=== PATIENT | female | born 1990 | race Caucasian/White ===

== ENCOUNTER 2016-09-15 12:23 | Emergency (ER) | payer BC, OTHER ==
[~2016-09-15] VITALS: Ht 157.5 cm; Wt 68.0 kg
[2016-09-15 12:54] VITALS: BP_SYST 110
[2016-09-15 13:43] LABS: BASOPHILS % (AUTO) 0.4 % (0.0-2.0); EOSINOPHILS # (AUTO) 0.1 K/uL (0.0-0.4); EOSINOPHILS % (AUTO) 0.6 % (0.0-4.0); HEMATOCRIT 40.8 % (36-48); HEMOGLOBIN 13.8 g/dL (12.0-16.0); LYMPHOCYTES # (AUTO) 2.7 K/uL (1.0-5.5); LYMPHOCYTES % (AUTO) 26.6 % (20.5-51.5); MEAN CORPUSCULAR HEMOGLOBIN 29 pg (27-31); MEAN CORPUSCULAR HGB CONC 34 % (32-36); MEAN CORPUSCULAR VOLUME 85 fL (79.0-98.0); MONOCYTES # (AUTO) 0.8 K/uL (0.0-1.0); MONOCYTES % (AUTO) 8.3 % (1.7-9.3); NEUTROPHILS # (AUTO) 6.5 K/uL (1.8-7.7); NEUTROPHILS % (AUTO) 64.1 % (40.0-70.0); PLATELET COUNT (AUTO) 253 K/uL (130-430); RED BLOOD CELL COUNT(AUTO) 4.79 MIL/uL (4.2-6.2); WHITE BLOOD COUNT (AUTO) 10.1 K/uL (4.8-10.8)
[2016-09-15 13:50] LABS: CALCIUM 9.4 mg/dL (8.4-11.0); CREATININE 0.72 mg/dL (0.55-1.30)
[2016-09-15 13:53] LABS: PROTHROMBIN TIME 10.8 SECS (9.5-12.5)
[2016-09-15 14:20] LABS: ALBUMIN 3.5 g/dL (3.4-4.8); TOTAL BILIRUBIN 0.3 mg/dL (0.0-1.0); TOTAL PROTEIN, SERUM 7.8 g/dL (6.4-8.3)
--- NOTE | 2016-09-15 14:42 | NUR ---
Patient to ER bed 4 to gown for evaluation. Side rails up. Report given to Nilda RUSHING.
[2016-09-15 14:57] LABS: BILIRUBIN,URINE NEGATIVE (NEGATIVE); BLOOD, URINE 2+ (NEGATIVE); CLARITY/URINE HAZY (CLEAR); COLOR,URINE YELLOW (YELLOW); GLUCOSE,URINE NEGATIVE (NEGATIVE); KETONES,URINE NEGATIVE (NEGATIVE); LEUKOCYTE ESTERASE ,URINE 1+ (NEGATIVE); NITRITE, URINE NEGATIVE (NEGATIVE); PROTEIN URINE NEGATIVE (NEGATIVE); UROBILINOGEN,URINE 0.2 (0.2-1.0)
[2016-09-15 14:59] LABS: BACTERIA,URINE FEW /HPF (None Seen); MUCUS,URINE None Seen /LPF (None Seen)
--- NOTE | 2016-09-15 15:00 | NUR ---
Dr. Deras at bedside.
--- NOTE | 2016-09-15 15:17 | NUR ---
Patient reports that she has been having vaginal bleeding with cramping and pain in the back today. Patient reports that she is 9 weeks . No other complaints/injuries per patient or as noted.
--- NOTE | 2016-09-15 17:10 | NUR ---
Consent signed per patient agreeing to administration of Rhogam. Blood has been type and crossmatched. Blood sent from blood bank. Information on unit of blood checked against patient wristband at bedside by two nurses. All information matches. Patient or responsible constitution party informed of potential complications associated with blood transfusion. Informed of possible transfusion reaction symptoms. Aware of need to notify nurse at once of itching, shortness of breath, flushing, feeling of impending doom, or other symptoms not previously present. Vital signs taken within 5 minutes prior to initiation of transfusion. RN will remain with patient for first 15 minutes of transfusion at which time vital signs will be re-assessed.
--- NOTE | 2016-09-15 17:15 | NUR ---
Patient's Vitals signs are 98.8, Pulse 64, Respiration 17 and blood pressure 107/71 prior to adminstration of Rhogam. Will continue to monitor
--- NOTE | 2016-09-15 17:40 | NUR ---
Patient Vitals during post transfusion is 98.8, Pulse of 74 Respiration of 16 Blood Pressure of 104/62. Patient has no complaints at this time.
[2016-09-15 17:49] VITALS: BP_SYST 110
--- NOTE | 2016-09-15 17:49 | NUR ---
Patient given written and verbal discharge instructions and verbalizes understanding. ER MD discussed with patient the results and treatment provided. Patient in stable condition. ID arm band removed. No Rx given. Patient educated on pain management and to follow up with PMD in 2 days. Pain Scale 0/10 Opportunity for questions provided and answered.
== END 2016-09-15 19:47 | disposition home or self-care (01) ==
LOC: SED 12:23
DX: O20.0 Threatened abortion (principal); O23.41 Unspecified infection of urinary tract in pregnancy, first trimester; Z3A.01 Less than 8 weeks gestation of pregnancy
CPT/HCPCS: 36415; 76801; 80053; 81000; 84702; 85025; 85610; 85730; 86900; 86901; 87086; 99285; J2790

== ENCOUNTER 2016-09-28 09:17 | Emergency (ER) | payer OTHER ==
[~2016-09-28] VITALS: Ht 157.5 cm; Wt 68.0 kg
[2016-09-28 09:21] VITALS: BP_SYST 109
--- NOTE | 2016-09-28 09:25 | NUR ---
Ambulatory to bed 4
--- NOTE | 2016-09-28 09:28 | NUR ---
Pt bib mother for c/o nausea and vomiting for more than 5 days, states she is about 11 weeks . . LMP was 07/15/16. Pt is placed on hospital monitor and continuous pulse ox. VSS, will continue to monitor.
--- NOTE | 2016-09-28 09:31 | NUR ---
Dr. Ruiz at bedside for evaluation
[2016-09-28] MEDS ORDERED: NACL 0.9% 1,000 ML IV ONE (09:45)
[2016-09-28] MEDS ORDERED: ONDANSETRON HCL 4 MG/2 ML VIAL IVP ONE (09:45)
[2016-09-28 09:49] LABS: BASOPHILS % (AUTO) 0.3 % (0.0-2.0); EOSINOPHILS % (AUTO) 0.3 % (0.0-4.0); HEMATOCRIT 42.4 % (36-48); HEMOGLOBIN 14.2 g/dL (12.0-16.0); LYMPHOCYTES # (AUTO) 1.9 K/uL (1.0-5.5); LYMPHOCYTES % (AUTO) 24.2 % (20.5-51.5); MEAN CORPUSCULAR HEMOGLOBIN 29 pg (27-31); MEAN CORPUSCULAR HGB CONC 34 % (32-36); MEAN CORPUSCULAR VOLUME 85 fL (79.0-98.0); MONOCYTES # (AUTO) 0.6 K/uL (0.0-1.0); MONOCYTES % (AUTO) 7.3 % (1.7-9.3); NEUTROPHILS # (AUTO) 5.5 K/uL (1.8-7.7); NEUTROPHILS % (AUTO) 67.9 % (40.0-70.0); PLATELET COUNT (AUTO) 253 K/uL (130-430); RED BLOOD CELL COUNT(AUTO) 4.96 MIL/uL (4.2-6.2); RED CELL DISTRIBUTION WIDTH 11.8 % (9.0-15.0)
[2016-09-28 09:52] LABS: BILIRUBIN,URINE NEGATIVE (NEGATIVE); BLOOD, URINE 1+ (NEGATIVE); CLARITY/URINE CLOUDY (CLEAR); COLOR,URINE YELLOW (YELLOW); GLUCOSE,URINE NEGATIVE (NEGATIVE); KETONES,URINE NEGATIVE (NEGATIVE); LEUKOCYTE ESTERASE ,URINE TRACE (NEGATIVE); NITRITE, URINE NEGATIVE (NEGATIVE); PH,URINE 7.5 (5.0-8.0); PROTEIN URINE TRACE (NEGATIVE)
[2016-09-28 09:54] LABS: CALCIUM 9.6 mg/dL (8.4-11.0); CREATININE 0.81 mg/dL (0.55-1.30); POTASSIUM 3.9 mmol/L (3.5-5.1)
[2016-09-28 09:59] LABS: ALBUMIN 3.6 g/dL (3.4-4.8); TOTAL BILIRUBIN 0.4 mg/dL (0.0-1.0); TOTAL PROTEIN, SERUM 8.3 g/dL (6.4-8.3)
[2016-09-28 10:00] LABS: BACTERIA,URINE MANY /HPF (None Seen); RBC,URINE 0-3 /HPF (0-3)
--- NOTE | 2016-09-28 10:03 | NUR ---
Medicated per MD orders. IVF infusing with no s/s of infiltration at this time. No adverse reactions noted. Will continue to monitor.
--- NOTE | 2016-09-28 10:20 | NUR ---
Pt went to US on wheelchair with tech, no distress noted.
--- NOTE | 2016-09-28 10:40 | NUR ---
Pt back from US, states nausea is better. Dr. Ruiz at bedside to discuss plan of care.
[2016-09-28 10:55] VITALS: BP_SYST 106
--- NOTE | 2016-09-28 10:55 | NUR ---
Patient given written and verbal discharge instructions and verbalizes understanding. ER MD discussed with patient the results and treatment provided. Patient in stable condition. ID arm band removed. IV catheter removed intact and dressing applied, no active bleeding.Rx of zofran given. Opportunity for questions provided and answered.
== END 2016-09-28 10:55 | disposition home or self-care (01) ==
LOC: SED 09:17
DX: O21.0 Mild hyperemesis gravidarum (principal); Z3A.09 9 weeks gestation of pregnancy
CPT/HCPCS: 36415; 76801; 80053; 81000; 81025; 82150; 83690; 85025; 87086; 96361; 96374; 99285; J2405; J7030

== ENCOUNTER 2016-10-13 18:39 | Emergency (ER) | payer OTHER ==
[~2016-10-13] VITALS: Ht 157.5 cm; Wt 65.8 kg
[2016-10-13 18:40] VITALS: BP_SYST 135
[2016-10-13] MEDS ORDERED: NACL 0.9% 1,000 ML IV ONE (19:15)
[2016-10-13 20:07] LABS: BASOPHILS % (AUTO) 0.4 % (0.0-2.0); EOSINOPHILS % (AUTO) 0.6 % (0.0-4.0); HEMATOCRIT 39.7 % (36-48); HEMOGLOBIN 13.4 g/dL (12.0-16.0); LYMPHOCYTES # (AUTO) 2.5 K/uL (1.0-5.5); LYMPHOCYTES % (AUTO) 31.6 % (20.5-51.5); MEAN CORPUSCULAR HEMOGLOBIN 29 pg (27-31); MEAN CORPUSCULAR HGB CONC 34 % (32-36); MEAN CORPUSCULAR VOLUME 85 fL (79.0-98.0); MONOCYTES # (AUTO) 0.7 K/uL (0.0-1.0); MONOCYTES % (AUTO) 9.3 % (1.7-9.3); NEUTROPHILS # (AUTO) 4.6 K/uL (1.8-7.7); NEUTROPHILS % (AUTO) 58.1 % (40.0-70.0); PLATELET COUNT (AUTO) 266 K/uL (130-430); RED BLOOD CELL COUNT(AUTO) 4.65 MIL/uL (4.2-6.2); WHITE BLOOD COUNT (AUTO) 7.9 K/uL (4.8-10.8)
[2016-10-13 20:20] LABS: CALCIUM 8.6 mg/dL (8.4-11.0); CHLORIDE 105 mmol/L (98-107); CREATININE 0.59 mg/dL (0.55-1.30); GLUCOSE 86 mg/dL (70-99); POTASSIUM 3.5 mmol/L (3.5-5.1); SODIUM SERUM 130 mmol/L (136-145); UREA NITROGEN, BLOOD 9 mg/dL (8-21)
[2016-10-13 20:21] LABS: ANION GAP < 3 (5-15); GFR AFRICAN AMERICAN 160 mL/min (>90)
[2016-10-13 20:24] LABS: ALANINE AMINOTRANSFERASE 21 U/L (12-78); ALBUMIN 3.2 g/dL (3.4-4.8); ASPARTATE AMINOTRANSFERASE 16 U/L (10-37); LIPASE 158 U/L (73-393); TOTAL BILIRUBIN 0.3 mg/dL (0.0-1.0); TOTAL PROTEIN, SERUM 7.7 g/dL (6.4-8.3)
[2016-10-13] MEDS ORDERED: DIPHENHYDRAMINE INJ 50 MG/ML VIAL IVP ONE ×2 (20:30→22:00)
[2016-10-13 20:47] LABS: BILIRUBIN,URINE NEGATIVE (NEGATIVE); CLARITY/URINE SL HAZY (CLEAR); COLOR,URINE YELLOW (YELLOW); GLUCOSE,URINE NEGATIVE (NEGATIVE); KETONES,URINE NEGATIVE (NEGATIVE); LEUKOCYTE ESTERASE ,URINE NEGATIVE (NEGATIVE); NITRITE, URINE NEGATIVE (NEGATIVE); PH,URINE 6.5 (5.0-8.0); PROTEIN URINE NEGATIVE (NEGATIVE); UROBILINOGEN,URINE 0.2 (0.2-1.0)
[2016-10-13 20:48] LABS: BLOOD, URINE TRACE (NEGATIVE)
[2016-10-13 20:53] LABS: BACTERIA,URINE MODERATE /HPF (None Seen); RBC,URINE 0-3 /HPF (0-3)
[2016-10-13 20:54] LABS: MUCUS,URINE None Seen /LPF (None Seen)
[2016-10-13] MEDS ORDERED: METOCLOPRAMIDE HCL 10 MG/2 ML VIAL IVP ONE (21:15)
[2016-10-13] MEDS ORDERED: NS 500 ML IV ONE (22:00)
[2016-10-13 22:40] VITALS: BP_SYST 100
== END 2016-10-13 22:40 | disposition home or self-care (01) ==
LOC: SED 18:39
DX: O23.41 Unspecified infection of urinary tract in pregnancy, first trimester (principal); O21.9 Vomiting of pregnancy, unspecified; E87.1 Hypo-osmolality and hyponatremia; Z3A.12 12 weeks gestation of pregnancy
CPT/HCPCS: 36415; 76801; 76817; 80053; 81000; 83690; 85025; 87086; 96361; 96374; 96375; 99285; J1200; J2765; J7030; J7040

== ENCOUNTER 2016-10-25 23:17 | Emergency (ER) | payer OTHER ==
[~2016-10-25] VITALS: Ht 157.5 cm; Wt 68.0 kg
[2016-10-25 23:20] VITALS: BP_SYST 121
[2016-10-26 00:21] LABS: BILIRUBIN,URINE NEGATIVE (NEGATIVE); CLARITY/URINE CLEAR (CLEAR); COLOR,URINE YELLOW (YELLOW); GLUCOSE,URINE NEGATIVE (NEGATIVE); KETONES,URINE NEGATIVE (NEGATIVE); LEUKOCYTE ESTERASE ,URINE NEGATIVE (NEGATIVE); NITRITE, URINE NEGATIVE (NEGATIVE); PROTEIN URINE NEGATIVE (NEGATIVE); UROBILINOGEN,URINE 0.2 (0.2-1.0)
[2016-10-26 00:22] LABS: BLOOD, URINE TRACE (NEGATIVE)
[2016-10-26 00:32] LABS: BACTERIA,URINE FEW /HPF (None Seen); RBC,URINE 0-3 /HPF (0-3); WBC,URINE 0-3 /HPF (0-3)
[2016-10-26] MEDS ORDERED: ACETAMINOPHEN 500 MG TABLET PO ONE (00:45)
[2016-10-26 00:57] LABS: BASOPHILS % (AUTO) 0.2 % (0.0-2.0); EOSINOPHILS # (AUTO) 0.1 K/uL (0.0-0.4); EOSINOPHILS % (AUTO) 0.9 % (0.0-4.0); HEMATOCRIT 37.8 % (36-48); LYMPHOCYTES # (AUTO) 3.1 K/uL (1.0-5.5); LYMPHOCYTES % (AUTO) 35.8 % (20.5-51.5); MEAN CORPUSCULAR HEMOGLOBIN 29 pg (27-31); MEAN CORPUSCULAR HGB CONC 34 % (32-36); MEAN CORPUSCULAR VOLUME 84 fL (79.0-98.0); MONOCYTES # (AUTO) 0.7 K/uL (0.0-1.0); MONOCYTES % (AUTO) 8.5 % (1.7-9.3); NEUTROPHILS # (AUTO) 4.7 K/uL (1.8-7.7); NEUTROPHILS % (AUTO) 54.6 % (40.0-70.0); PLATELET COUNT (AUTO) 242 K/uL (130-430); RED BLOOD CELL COUNT(AUTO) 4.48 MIL/uL (4.2-6.2); RED CELL DISTRIBUTION WIDTH 11.9 % (9.0-15.0); WHITE BLOOD COUNT (AUTO) 8.6 K/uL (4.8-10.8)
[2016-10-26 01:04] LABS: CALCIUM 8.8 mg/dL (8.4-11.0); CREATININE 0.7 mg/dL (0.55-1.30); POTASSIUM 3.8 mmol/L (3.5-5.1)
[2016-10-26 01:30] LABS: ALBUMIN 3.1 g/dL (3.4-4.8); TOTAL BILIRUBIN 0.2 mg/dL (0.0-1.0); TOTAL PROTEIN, SERUM 7.3 g/dL (6.4-8.3)
[2016-10-26 01:38] VITALS: BP_SYST 119
== END 2016-10-26 01:38 | disposition home or self-care (01) ==
LOC: SED 23:17
DX: O26.892 Other specified pregnancy related conditions, second trimester (principal); Z63.9 Problem related to primary support group, unspecified; Z3A.14 14 weeks gestation of pregnancy
CPT/HCPCS: 36415; 76815; 80053; 81000-TC; 81025; 84702-TC; 85025; 99285

== ENCOUNTER 2016-11-26 18:16 | Observation (INO) | payer OTHER ==
[~2016-11-26] VITALS: Ht 157.5 cm; Wt 68.0 kg
[2016-11-26] MEDS ORDERED: D5/0.45 NS 1,000 ML IV ONE (18:45)
[2016-11-26] MEDS ORDERED: D5/0.45 NS 500 ML IV ONE ×2 (18:45→20:00)
[2016-11-26] MEDS ORDERED: ONDANSETRON HCL 4 MG/2 ML VIAL IVP PRN (18:45)
[2016-11-26 19:58] VITALS: BP_SYST 106
[2016-11-27] MEDS ORDERED: D5/0.45 NS 1,000 ML IV SCH (08:30)
== END 2016-11-27 08:30 | disposition home or self-care (01) ==
LOC: SPU 18:16
PROVIDERS: ADMIT Specialist; ATTEND Specialist
DX: O21.2 Late vomiting of pregnancy (principal); Z3A.00 Weeks of gestation of pregnancy not specified
CPT/HCPCS: 81002; 96361 ×2; 96374; G0378 ×2; J2405

== ENCOUNTER 2016-12-30 18:40 | Observation (INO) | payer OTHER ==
[~2016-12-30] VITALS: Ht 157.5 cm; Wt 68.9 kg
[2016-12-30 20:17] LABS: BILIRUBIN,URINE NEGATIVE (NEGATIVE); BLOOD, URINE 2+ (NEGATIVE); CLARITY/URINE CLEAR (CLEAR); COLOR,URINE YELLOW (YELLOW); GLUCOSE,URINE NEGATIVE (NEGATIVE); KETONES,URINE NEGATIVE (NEGATIVE); LEUKOCYTE ESTERASE ,URINE NEGATIVE (NEGATIVE); NITRITE, URINE NEGATIVE (NEGATIVE); PH,URINE 6.5 (5.0-8.0); PROTEIN URINE NEGATIVE (NEGATIVE); UROBILINOGEN,URINE 0.2 (0.2-1.0)
[2016-12-30 20:27] LABS: BACTERIA,URINE MODERATE /HPF (None Seen); RBC,URINE 0-3 /HPF (0-3); WBC,URINE 0-3 /HPF (0-3)
[2016-12-30 20:28] LABS: MUCUS,URINE None Seen /LPF (None Seen)
== END 2016-12-30 22:15 | disposition home or self-care (01) ==
LOC: SPU 18:40
PROVIDERS: ADMIT Specialist; ATTEND Specialist
DX: O26.892 Other specified pregnancy related conditions, second trimester (principal); R10.9 Unspecified abdominal pain; M54.9 Dorsalgia, unspecified; O46.92 Antepartum hemorrhage, unspecified, second trimester; Z3A.24 24 weeks gestation of pregnancy
CPT/HCPCS: 76815; 81000; G0378

== ENCOUNTER 2017-03-17 20:30 | Observation (INO) | payer OTHER ==
[~2017-03-17] VITALS: Ht 157.5 cm; Wt 79.4 kg
[2017-03-17 21:29] VITALS: BP_SYST 113
== END 2017-03-17 22:55 | disposition home or self-care (01) ==
LOC: SPU 20:30
PROVIDERS: ADMIT Specialist; ATTEND Specialist
DX: O26.893 Other specified pregnancy related conditions, third trimester (principal); Z3A.35 35 weeks gestation of pregnancy; R10.9 Unspecified abdominal pain; M54.5 Low back pain; Z36.89 Encounter for other specified antenatal screening
CPT/HCPCS: 81002-TC; G0378

== ENCOUNTER 2017-04-03 22:15 | Observation (INO) | payer OTHER ==
[~2017-04-03] VITALS: Ht 157.5 cm; Wt 79.4 kg
[2017-04-03] MEDS ORDERED: TERBUTALINE SULFATE 1 MG/ML VIAL ONE (22:59)
[2017-04-03] MEDS ORDERED: TERBUTALINE SULFATE 1 MG/ML VIAL SUBCUT PRN (23:00)
== END 2017-04-03 23:15 | disposition home or self-care (01) ==
LOC: SPU 22:15
PROVIDERS: ADMIT Specialist; ATTEND Specialist
DX: O62.9 Abnormality of forces of labor, unspecified (principal); Z3A.37 37 weeks gestation of pregnancy
CPT/HCPCS: 59025; 81002; 96372; G0378; J3105; 59899

== ENCOUNTER 2017-04-10 18:35 | Inpatient (IN) | payer OTHER ==
[~2017-04-10] VITALS: Ht 157.5 cm; Wt 80.7 kg
[2017-04-10] MEDS ORDERED: OXYTOCIN/NORMAL SALINE 1,000 ML IV SCH (20:19)
[2017-04-10] MEDS ORDERED: DINOPROSTONE 10 MG SUPP VG ONE (20:30)
[2017-04-10] MEDS ORDERED: NALBUPHINE HCL 10 MG/ML AMP IVP PRN (20:30)
[2017-04-10] MEDS ORDERED: LR 1,000 ML IV ONE (20:37)
[2017-04-10 21:05] LABS: BASOPHILS % (AUTO) 0.3 % (0.0-2.0); EOSINOPHILS # (AUTO) 0.1 K/uL (0.0-0.4); HEMOGLOBIN 10.8 g/dL (12.0-16.0); LYMPHOCYTES # (AUTO) 2.1 K/uL (1.0-5.5); LYMPHOCYTES % (AUTO) 27.6 % (20.5-51.5); MEAN CORPUSCULAR HEMOGLOBIN 28 pg (27-31); MEAN CORPUSCULAR HGB CONC 34 % (32-36); MEAN CORPUSCULAR VOLUME 82 fL (79.0-98.0); MONOCYTES # (AUTO) 0.7 K/uL (0.0-1.0); MONOCYTES % (AUTO) 8.7 % (1.7-9.3); NEUTROPHILS # (AUTO) 4.8 K/uL (1.8-7.7); NEUTROPHILS % (AUTO) 62.4 % (40.0-70.0); PLATELET COUNT (AUTO) 289 K/uL (130-430); RED BLOOD CELL COUNT(AUTO) 3.91 MIL/uL (4.2-6.2); RED CELL DISTRIBUTION WIDTH 12.2 % (9.0-15.0); WHITE BLOOD COUNT (AUTO) 7.7 K/uL (4.8-10.8)
[2017-04-10] MEDS: LR 1,000 ML IV SCH (21:11)
[2017-04-11] MEDS: LR 1,000 ML IV SCH (04:02)
[2017-04-11 04:44] VITALS: BP_SYST 120
[2017-04-11] MEDS ORDERED: fentaNYL CITRATE/PF 100 MCG/2 ML AMP ONE ×2 (10:21→10:29)
[2017-04-11] MEDS ORDERED: ROPIVACAINE 0.2% 100 ML EPI ONE (11:00)
[2017-04-11] MEDS ORDERED: fentaNYL CITRATE/PF 100 MCG/2 ML AMP EP ONE (11:00)
[2017-04-11] MEDS ORDERED: LR 500 ML IV ONE (11:10)
[2017-04-11] MEDS ORDERED: NALOXONE HCL 0.4 MG/ML AMP (NARCAN) IVP PRN (11:15)
[2017-04-11] MEDS ORDERED: NALBUPHINE HCL 10 MG/ML AMP IVP PRN (11:15)
[2017-04-11] MEDS ORDERED: ONDANSETRON HCL 4 MG/2 ML VIAL IVP PRN (11:15)
[2017-04-11] MEDS ORDERED: DIPHENHYDRAMINE INJ 50 MG/ML VIAL IVP PRN (11:15)
[2017-04-11] MEDS: OXYTOCIN/NORMAL SALINE 1,000 ML IV SCH (17:57)
[2017-04-12] MEDS ORDERED: NACL 0.9% 1,000 ML IV SCH (09:49)
[2017-04-12] MEDS ORDERED: CEFAZOLIN 2 GM IVPB PREMIX 50 ML IV ONE ×2 (10:00→10:04)
[2017-04-12] MEDS ORDERED: KETOROLAC TROMETHAMINE 30 MG VIAL IVP PRN (10:00)
[2017-04-12] MEDS ORDERED: ONDANSETRON HCL 4 MG/2 ML VIAL IVP PRN ×2 (10:00)
[2017-04-12] MEDS ORDERED: NALBUPHINE HCL 10 MG/ML AMP IVP PRN (10:00)
[2017-04-12] MEDS ORDERED: KETOROLAC TROMETHAMINE 60 MG/2 ML VIAL IM PRN (10:00)
[2017-04-12] MEDS ORDERED: DIPHENHYDRAMINE INJ 50 MG/ML VIAL IVP PRN (10:00)
[2017-04-12] MEDS ORDERED: NALOXONE HCL 0.4 MG/ML AMP (NARCAN) IVP PRN ×2 (10:00)
[2017-04-12] MEDS ORDERED: OXYTOCIN/NORMAL SALINE 1,000 ML IV ONE (10:58)
[2017-04-12] MEDS ORDERED: LR 1,000 ML IV SCH (10:58)
[2017-04-12 11:00] VITALS: BP_SYST 108
[2017-04-12] MEDS ORDERED: DOCUSATE SODIUM 100 MG CAPSULE PO PRN (11:00)
[2017-04-12] MEDS ORDERED: BISACODYL 10 MG/SUPPOSITORY RC PRN (11:00)
[2017-04-12] MEDS ORDERED: LANOLIN 7 GM OINT. TP PRN (11:00)
[2017-04-12] MEDS ORDERED: MEASLES,MUMPS&RUBELLA VACC/PF 12500 UNIT/0.5 ML VIAL SUBQ PRN (11:00)
[2017-04-12] MEDS ORDERED: SENNOSIDES/DOCUSATE SODIUM 1 TAB TABLET(SENOKOT-S) PO PRN (11:00)
[2017-04-12] MEDS ORDERED: OXYCODONE/ACETAMINOPHEN 5-325 TABLET PO PRN (11:00)
[2017-04-12] MEDS ORDERED: MORPHINE SULFATE 10MG/10ML PF AMP EP SCH (11:00)
[2017-04-12] MEDS ORDERED: ANUSOL 1 EA SUPP.RECT (PREPARATION H) RC PRN (11:00)
[2017-04-12] MEDS ORDERED: HYDROcodone/ACETAMIN 5-325 MG TAB (NORCO/ VICODIN) PO PRN (11:00)
[2017-04-12] MEDS ORDERED: RHO(D) IMMUNE GLOBULIN/MALTOSE 1500 UNITS/1.3 ML (WINHRO) IM PRN (11:00)
[2017-04-12] MEDS: OXYTOCIN/NORMAL SALINE 1,000 ML IV SCH (11:40)
[2017-04-12] MEDS: CEFAZOLIN 1 GM IVPB PREMIX 50 ML IV SCH ×2 (16:00→22:00)
[2017-04-12] MEDS: KETOROLAC TROMETHAMINE 30 MG VIAL IVP SCH (18:21)
[2017-04-12] MEDS ORDERED: BUPIVACAINE /PF 0.5% 30 ML VIAL INJ ONE (18:24)
[2017-04-12] MEDS ORDERED: TEMAZEPAM 15 MG CAPSULE PO PRN (21:00)
[2017-04-13] MEDS: KETOROLAC TROMETHAMINE 30 MG VIAL IVP SCH ×3 (01:35→11:31)
[2017-04-13] MEDS: CEFAZOLIN 1 GM IVPB PREMIX 50 ML IV SCH (04:00)
[2017-04-13 09:31] LABS: BASOPHILS % (AUTO) 0.3 % (0.0-2.0); EOSINOPHILS % (AUTO) 0.2 % (0.0-4.0); HEMATOCRIT 32.1 % (36-48); HEMOGLOBIN 10.6 g/dL (12.0-16.0); LYMPHOCYTES # (AUTO) 1.7 K/uL (1.0-5.5); LYMPHOCYTES % (AUTO) 14.5 % (20.5-51.5); MEAN CORPUSCULAR HEMOGLOBIN 27 pg (27-31); MEAN CORPUSCULAR HGB CONC 33 % (32-36); MEAN CORPUSCULAR VOLUME 83 fL (79.0-98.0); MONOCYTES # (AUTO) 0.7 K/uL (0.0-1.0); MONOCYTES % (AUTO) 6.4 % (1.7-9.3); NEUTROPHILS # (AUTO) 9.2 K/uL (1.8-7.7); NEUTROPHILS % (AUTO) 78.6 % (40.0-70.0); PLATELET COUNT (AUTO) 302 K/uL (130-430); RED BLOOD CELL COUNT(AUTO) 3.89 MIL/uL (4.2-6.2); RED CELL DISTRIBUTION WIDTH 12.4 % (9.0-15.0); WHITE BLOOD COUNT (AUTO) 11.6 K/uL (4.8-10.8)
[2017-04-13] MEDS: IBUPROFEN 600 MG TABLET PO SCH ×3 (11:36→23:27)
[2017-04-13] MEDS: SIMETHICONE 80 MG TAB.CHEW PO PRN (13:26)
[2017-04-14] MEDS: SIMETHICONE 80 MG TAB.CHEW PO PRN (02:50)
[2017-04-14] MEDS: OXYCODONE/ACETAMINOPHEN 5-325 TABLET PO PRN ×2 (05:41→17:26)
[2017-04-14] MEDS: IBUPROFEN 600 MG TABLET PO SCH ×3 (05:42→17:25)
== END 2017-04-14 18:25 | disposition home or self-care (01) | DRG 766 ==
LOC: SPU 20:00
PROVIDERS: ADMIT Specialist; ATTEND Specialist
PROC: 3E0P7VZ Introduction of Hormone into Female Reproductive, Via Natural or Artificial Opening (ICD-10-PCS; 2017-04-10)
PROC: 10D00Z1 Extraction of Products of Conception, Low, Open Approach (ICD-10-PCS; principal; 2017-04-11)
DX: O33.9 Maternal care for disproportion, unspecified (principal); O62.2 Other uterine inertia; O69.81X0 Labor and delivery complicated by cord around neck, without compression, not applicable or unspecified; Z37.0 Single live birth; Z3A.39 39 weeks gestation of pregnancy
CPT/HCPCS: 36415; 81002-TC; 85025; 86592; 86870; 86886; 86900; 86901; 94760; A4618; J0690; J1885; J2790; J3010; J3490; J7120

== ENCOUNTER 2018-04-18 22:47 | Observation (INO) | payer OTHER ==
[~2018-04-18] VITALS: Ht 157.5 cm; Wt 77.1 kg
[2018-04-18] MEDS ORDERED: NITROFURANTOIN MONOHYD/M-CRYST 100 MG CAPSULE PO ONE (23:54)
[2018-04-19] MEDS ORDERED: NITROFURANTOIN MONOHYD/M-CRYST 100 MG CAPSULE PO ONE
== END 2018-04-19 00:10 | disposition home or self-care (01) ==
LOC: SPU 22:47
PROVIDERS: ADMIT Specialist; ATTEND Specialist
DX: O26.892 Other specified pregnancy related conditions, second trimester (principal); R10.9 Unspecified abdominal pain; Z3A.26 26 weeks gestation of pregnancy
CPT/HCPCS: 87086; G0378

== ENCOUNTER 2018-06-08 22:30 | Emergency (ER) | payer OTHER ==
[~2018-06-08] VITALS: Ht 157.5 cm; Wt 79.4 kg
[2018-06-08 21:45] LABS: HEMATOCRIT 33.8 % (36-48); HEMOGLOBIN 11.5 g/dL (12.0-16.0); MEAN CORPUSCULAR VOLUME 84 fL (79.0-98.0); RED BLOOD CELL COUNT(AUTO) 4.01 MIL/uL (4.2-6.2); WHITE BLOOD COUNT (AUTO) 10.3 K/uL (4.8-10.8)
[2018-06-08 21:46] LABS: BASOPHILS % (AUTO) 0.3 % (0.0-2.0); EOSINOPHILS % (AUTO) 1.2 % (0.0-4.0); LYMPHOCYTES % (AUTO) 29.7 % (20.5-51.5); MEAN CORPUSCULAR HEMOGLOBIN 29 pg (27-31); MEAN CORPUSCULAR HGB CONC 34 % (32-36); MONOCYTES % (AUTO) 7.1 % (1.7-9.3); NEUTROPHILS # (AUTO) 6.4 K/uL (1.8-7.7); NEUTROPHILS % (AUTO) 61.7 % (40.0-70.0); PLATELET COUNT (AUTO) 290 K/uL (130-430)
[2018-06-08 21:47] LABS: EOSINOPHILS # (AUTO) 0.1 K/uL (0.0-0.4); LYMPHOCYTES # (AUTO) 3.1 K/uL (1.0-5.5); MONOCYTES # (AUTO) 0.7 K/uL (0.0-1.0)
[2018-06-08 21:52] LABS: ALBUMIN 2.3 g/dL (3.4-4.8); CALCIUM 8.5 mg/dL (8.4-11.0); CREATININE 0.53 mg/dL (0.55-1.30); POTASSIUM 3.5 mmol/L (3.5-5.1); TOTAL BILIRUBIN 0.2 mg/dL (0.0-1.0)
[2018-06-08 22:30] VITALS: BP_SYST 119
--- NOTE | 2018-06-08 22:30 | NUR ---
Pt triaged and placed to ER waiting room in W/C in stable condition. Family member present.
--- NOTE | 2018-06-08 22:58 | NUR ---
Pt returns to ER from OB. Pt c/o upper right rib pain, productive cough with green mucous x since Friday. Pt states that the overall feeling of sickness has been on going x 3 weeks. Pt denies c/o C/P or SOB, VSS.
--- NOTE | 2018-06-08 22:58 | NUR ---
[facility].
--- NOTE | 2018-06-08 23:10 | NUR ---
Pt states I haven't been seen yet and I've been waiting for hours. Reassured pt that MD will see her soon.
== END 2018-06-08 23:27 | disposition left against medical advice (07) ==
LOC: SED 22:30 → EDSTATUS 22:30 → SED 23:27
DX: R07.81 Pleurodynia (principal); R05 Cough; Z53.21 Procedure and treatment not carried out due to patient leaving prior to being seen by health care provider
CPT/HCPCS: 36415; 80053; 81002-TC; 85025; 99281

== ENCOUNTER 2018-07-14 04:50 | Inpatient (IN) | payer OTHER ==
[~2018-07-14] VITALS: Ht 157.5 cm; Wt 81.6 kg
[2018-07-14] MEDS ORDERED: LR 1,000 ML IV SCH (05:44)
[2018-07-14] MEDS ORDERED: CEFAZOLIN 2 GM IVPB PREMIX 50 ML IV ONE (05:45)
[2018-07-14 06:25] LABS: BILIRUBIN,URINE NEGATIVE (NEGATIVE); CLARITY/URINE SL HAZY (CLEAR); COLOR,URINE YELLOW (YELLOW); GLUCOSE,URINE NEGATIVE (NEGATIVE); KETONES,URINE 1+ (NEGATIVE); LEUKOCYTE ESTERASE ,URINE 3+ (NEGATIVE); NITRITE, URINE NEGATIVE (NEGATIVE); PH,URINE 7.5 (5.0-8.0); PROTEIN URINE TRACE (NEGATIVE); UROBILINOGEN,URINE 0.2 (0.2-1.0)
[2018-07-14 06:26] LABS: BLOOD, URINE TRACE (NEGATIVE)
[2018-07-14 06:28] LABS: HEMATOCRIT 36.4 % (36-48); HEMOGLOBIN 11.9 g/dL (12.0-16.0); MEAN CORPUSCULAR HEMOGLOBIN 26 pg (27-31); MEAN CORPUSCULAR VOLUME 80 fL (79.0-98.0); RED BLOOD CELL COUNT(AUTO) 4.56 MIL/uL (4.2-6.2); WHITE BLOOD COUNT (AUTO) 9.4 K/uL (4.8-10.8)
[2018-07-14 06:29] LABS: BASOPHILS % (AUTO) 0.3 % (0.0-2.0); EOSINOPHILS % (AUTO) 0.2 % (0.0-4.0); LYMPHOCYTES # (AUTO) 0.7 K/uL (1.0-5.5); LYMPHOCYTES % (AUTO) 7.2 % (20.5-51.5); MEAN CORPUSCULAR HGB CONC 33 % (32-36); MONOCYTES # (AUTO) 0.5 K/uL (0.0-1.0); MONOCYTES % (AUTO) 5.4 % (1.7-9.3); NEUTROPHILS # (AUTO) 8.1 K/uL (1.8-7.7); NEUTROPHILS % (AUTO) 86.9 % (40.0-70.0); PLATELET COUNT (AUTO) 246 K/uL (130-430); RED CELL DISTRIBUTION WIDTH 13.9 % (9.0-15.0)
[2018-07-14 06:34] LABS: BACTERIA,URINE MODERATE /HPF (None Seen); WBC,URINE 20-50 /HPF (0-3)
[2018-07-14] MEDS ORDERED: ONDANSETRON HCL 4 MG/2 ML VIAL IVP PRN (08:30)
== END 2018-07-14 14:45 | disposition home or self-care (01) | DRG 833 ==
LOC: SPU 04:50 → OBSVTOIN 04:50
PROVIDERS: ADMIT Specialist; ATTEND Specialist
DX: O21.9 Vomiting of pregnancy, unspecified (principal); Z3A.36 36 weeks gestation of pregnancy
CPT/HCPCS: 36415; 81000-TC; 85025; 86592; 86870; 86886; 86900; 86901; J0690; J2405; J7120

== ENCOUNTER 2018-08-07 05:35 | Inpatient (IN) | payer OTHER ==
[~2018-08-07] VITALS: Ht 157.5 cm; Wt 83.9 kg
[2018-08-07] MEDS ORDERED: CEFAZOLIN 2 GM IVPB PREMIX 50 ML IV ONE (05:45)
[2018-08-07] MEDS: LR 1,000 ML IV SCH ×2 (05:50→07:19)
[2018-08-07 06:03] LABS: BILIRUBIN,URINE NEGATIVE (NEGATIVE); BLOOD, URINE 1+ (NEGATIVE); CLARITY/URINE HAZY (CLEAR); COLOR,URINE YELLOW (YELLOW); GLUCOSE,URINE NEGATIVE (NEGATIVE); KETONES,URINE NEGATIVE (NEGATIVE); LEUKOCYTE ESTERASE ,URINE 3+ (NEGATIVE); NITRITE, URINE NEGATIVE (NEGATIVE); PROTEIN URINE NEGATIVE (NEGATIVE); UROBILINOGEN,URINE 0.2 (0.2-1.0)
[2018-08-07 06:06] LABS: BASOPHILS # (AUTO) 0.1 K/uL (0.0-0.2); BASOPHILS % (AUTO) 0.9 % (0.0-2.0); EOSINOPHILS # (AUTO) 0.1 K/uL (0.0-0.4); EOSINOPHILS % (AUTO) 0.8 % (0.0-4.0); HEMATOCRIT 36.2 % (36-48); HEMOGLOBIN 11.6 g/dL (12.0-16.0); LYMPHOCYTES # (AUTO) 2.1 K/uL (1.0-5.5); LYMPHOCYTES % (AUTO) 29.9 % (20.5-51.5); MEAN CORPUSCULAR HEMOGLOBIN 25 pg (27-31); MEAN CORPUSCULAR HGB CONC 32 % (32-36); MEAN CORPUSCULAR VOLUME 78 fL (79.0-98.0); MONOCYTES # (AUTO) 0.5 K/uL (0.0-1.0); MONOCYTES % (AUTO) 6.7 % (1.7-9.3); NEUTROPHILS # (AUTO) 4.4 K/uL (1.8-7.7); NEUTROPHILS % (AUTO) 61.7 % (40.0-70.0); PLATELET COUNT (AUTO) 241 K/uL (130-430); RED BLOOD CELL COUNT(AUTO) 4.63 MIL/uL (4.2-6.2); RED CELL DISTRIBUTION WIDTH 14.8 % (9.0-15.0); WHITE BLOOD COUNT (AUTO) 7.1 K/uL (4.8-10.8)
[2018-08-07 06:07] LABS: BACTERIA,URINE MODERATE /HPF (None Seen); WBC,URINE 50-80 /HPF (0-3)
[2018-08-07 06:28] VITALS: BP_SYST 106
[2018-08-07] MEDS ORDERED: BUPIVACAINE /DEX PF 0.75% SPINAL 2 ML AMP INJ ONE (07:30)
[2018-08-07] MEDS ORDERED: NS IRRIG SOLN 1000 ML IR ONE (07:30)
[2018-08-07] MEDS ORDERED: ONDANSETRON HCL 4 MG/2 ML VIAL IVP ONE (07:30)
[2018-08-07] MEDS ORDERED: MORPHINE SULFATE 10MG/10ML PF AMP EP ONE (07:30)
[2018-08-07] MEDS ORDERED: METHYLERGONOVINE MALEATE 0.2 MG/ML AMP IM ONE (07:30)
[2018-08-07] MEDS ORDERED: LR 1,000 ML IV.SOLN IV ONE (07:30)
[2018-08-07] MEDS ORDERED: POLYMYXIN 500,000/BACIT.10,000 UNITS in NS IRR 1 L IR ONE (08:29)
[2018-08-07] MEDS ORDERED: NALOXONE HCL 0.4 MG/ML AMP (NARCAN) IVP PRN ×3 (08:30→22:30)
[2018-08-07] MEDS ORDERED: KETOROLAC TROMETHAMINE 60 MG/2 ML VIAL IM PRN (08:30)
[2018-08-07] MEDS ORDERED: ONDANSETRON HCL 4 MG/2 ML VIAL IVP PRN (08:30)
[2018-08-07] MEDS ORDERED: MORPHINE SULFATE 10MG/10ML PF AMP SP SCH (08:30)
[2018-08-07] MEDS ORDERED: fentaNYL CITRATE/PF 100 MCG/2 ML AMP IVP PRN ×2 (08:30)
[2018-08-07] MEDS ORDERED: NALBUPHINE HCL 10 MG/ML AMP IVP PRN (08:30)
[2018-08-07] MEDS ORDERED: HYDROcodone/ACETAMIN 5-325 MG TAB (NORCO/ VICODIN) PO PRN (08:45)
[2018-08-07] MEDS ORDERED: DIPH-TET-PERTUS Vaccine 0.5 ML VIAL (ADACEL) I.M. PRN (08:45)
[2018-08-07] MEDS ORDERED: OXYTOCIN/0.9 % SODIUM CHLORIDE 1,000 ML IV ONE ×2 (08:45→19:03)
[2018-08-07] MEDS ORDERED: OXYCODONE/ACETAMINOPHEN 5-325 TABLET PO PRN (08:45)
[2018-08-07] MEDS ORDERED: LR 1,000 ML IV SCH (08:45)
[2018-08-07] MEDS ORDERED: BISACODYL 10 MG/SUPPOSITORY RC PRN (08:45)
[2018-08-07] MEDS ORDERED: SENNOSIDES/DOCUSATE SODIUM 1 TAB TABLET(SENOKOT-S) PO PRN (08:45)
[2018-08-07] MEDS ORDERED: ANUSOL 1 EA SUPP.RECT (PREPARATION H) RC PRN (08:45)
[2018-08-07] MEDS ORDERED: LANOLIN 7 GM OINT. TP PRN (08:45)
[2018-08-07] MEDS ORDERED: RHO(D) IMMUNE GLOBULIN/MALTOSE 1500 UNITS/1.3 ML (WINHRO) IM PRN (08:45)
[2018-08-07] MEDS ORDERED: MEASLES,MUMPS&RUBELLA VACC/PF 12500 UNIT/0.5 ML VIAL SUBQ PRN (08:45)
[2018-08-07 08:47] VITALS: BP_SYST 139
[2018-08-07] MEDS: CEFAZOLIN 1 GM IVPB PREMIX 50 ML IV SCH ×3 (12:20→23:55)
[2018-08-07] MEDS: KETOROLAC TROMETHAMINE 30 MG VIAL IVP SCH ×2 (18:05→23:55)
[2018-08-07] MEDS: DIPHENHYDRAMINE INJ 50 MG/ML VIAL IVP PRN ×2 (19:46→21:42)
[2018-08-07] MEDS ORDERED: TEMAZEPAM 15 MG CAPSULE PO PRN (21:00)
[2018-08-07] MEDS ORDERED: COMMUNICATION ORDER XX ONE (21:45)
[2018-08-07] MEDS ORDERED: DIPHENHYDRAMINE INJ 50 MG/ML VIAL IVP SCH (22:30)
[2018-08-08] MEDS: DIPHENHYDRAMINE INJ 50 MG/ML VIAL IVP PRN (02:40)
[2018-08-08] MEDS ORDERED: COMMUNICATION ORDER XX ONE (04:30)
[2018-08-08] MEDS ORDERED: OXYTOCIN/0.9 % SODIUM CHLORIDE 1,000 ML IV ONE (04:35)
[2018-08-08 05:22] LABS: BASOPHILS % (AUTO) 0.3 % (0.0-2.0); EOSINOPHILS # (AUTO) 0.1 K/uL (0.0-0.4); HEMATOCRIT 26.9 % (36-48); HEMOGLOBIN 8.7 g/dL (12.0-16.0); LYMPHOCYTES % (AUTO) 22.5 % (20.5-51.5); MEAN CORPUSCULAR HEMOGLOBIN 26 pg (27-31); MEAN CORPUSCULAR HGB CONC 32 % (32-36); MEAN CORPUSCULAR VOLUME 79 fL (79.0-98.0); MONOCYTES # (AUTO) 0.7 K/uL (0.0-1.0); MONOCYTES % (AUTO) 8.3 % (1.7-9.3); NEUTROPHILS # (AUTO) 5.9 K/uL (1.8-7.7); NEUTROPHILS % (AUTO) 67.9 % (40.0-70.0); PLATELET COUNT (AUTO) 195 K/uL (130-430); RED BLOOD CELL COUNT(AUTO) 3.43 MIL/uL (4.2-6.2); WHITE BLOOD COUNT (AUTO) 8.7 K/uL (4.8-10.8)
[2018-08-08] MEDS: DOCUSATE SODIUM 100 MG CAPSULE PO PRN ×2 (07:52→21:34)
[2018-08-08] MEDS: OXYCODONE/ACETAMINOPHEN 5-325 TABLET PO PRN ×5 (07:52→21:35)
[2018-08-08] MEDS: SIMETHICONE 80 MG TAB.CHEW PO PRN ×4 (07:52→21:34)
[2018-08-08] MEDS: IBUPROFEN 600 MG TABLET PO SCH ×2 (12:05→16:50)
[2018-08-08] MEDS ORDERED: IBUPROFEN 600 MG TABLET PO SCH (18:00)
[2018-08-09] MEDS: SIMETHICONE 80 MG TAB.CHEW PO PRN ×2 (03:56→12:38)
[2018-08-09] MEDS: OXYCODONE/ACETAMINOPHEN 5-325 TABLET PO PRN ×4 (03:57→15:09)
[2018-08-09] MEDS: IBUPROFEN 600 MG TABLET PO SCH (11:40)
== END 2018-08-09 15:45 | disposition home or self-care (01) | DRG 788 ==
LOC: SPU 05:35
PROVIDERS: ADMIT Specialist; ATTEND Specialist
PROC: 10D00Z1 Extraction of Products of Conception, Low, Open Approach (ICD-10-PCS; principal; 2018-08-07 07:30)
DX: O34.211 Maternal care for low transverse scar from previous cesarean delivery (principal); O62.2 Other uterine inertia; Z3A.39 39 weeks gestation of pregnancy; Z37.0 Single live birth
CPT/HCPCS: 36415; 81000-TC; 85025; 86592; 86870; 86886; 86900; 86901; 87086; 94760; J0690; J1200; J1885; J2210; J2274; J2405; J2590; J3490; J7120

== ENCOUNTER 2021-08-20 13:27 | Emergency (ER) | payer BC, OTHER ==
[~2021-08-20] VITALS: Ht 157.5 cm; Wt 91.6 kg
[2021-08-20 13:53] VITALS: BP_SYST 134
--- NOTE | 2021-08-20 15:15 | NUR ---
Patient to ER bed 3 to gown for evaluation. Side rails up. Report given to BRENDA RUSHING.
--- NOTE | 2021-08-20 15:20 | NUR ---
PT INFORMED OF INFLUENZA A (+) RESULTS
[2021-08-20] MEDS ORDERED: OSELTAMIVIR PHOSPHATE 75 MG CAPSULE PO ONE (15:30)
[2021-08-20] MEDS ORDERED: NACL 0.9% 1,000 ML IV ONE ×2 (15:30→15:45)
[2021-08-20 15:45] LABS: BASOPHILS % (AUTO) 0.4 % (0.0-2.0); EOSINOPHILS % (AUTO) 0.1 % (0.0-4.0); HEMATOCRIT 30.4 % (36-48); LYMPHOCYTES # (AUTO) 0.3 K/uL (1.0-5.5); LYMPHOCYTES % (AUTO) 6.1 % (20.5-51.5); MEAN CORPUSCULAR HEMOGLOBIN 24 pg (27-31); MEAN CORPUSCULAR HGB CONC 33 % (32-36); MEAN CORPUSCULAR VOLUME 74 fL (79.0-98.0); MONOCYTES # (AUTO) 0.6 K/uL (0.0-1.0); MONOCYTES % (AUTO) 11.5 % (1.7-9.3); NEUTROPHILS # (AUTO) 4.3 K/uL (1.8-7.7); NEUTROPHILS % (AUTO) 81.9 % (40.0-70.0); PLATELET COUNT (AUTO) 230 K/uL (130-430); RED CELL DISTRIBUTION WIDTH 15.5 % (9.0-15.0); WHITE BLOOD COUNT (AUTO) 5.3 K/uL (4.8-10.8)
[2021-08-20] MEDS ORDERED: METOCLOPRAMIDE HCL 10 MG/2 ML VIAL IVP ONE (15:45)
[2021-08-20] MEDS ORDERED: DIPHENHYDRAMINE INJ 50 MG/ML VIAL IVP ONE (15:45)
[2021-08-20 15:52] LABS: CALCIUM 8.2 mg/dL (8.4-11.0); CREATININE 0.75 mg/dL (0.55-1.30); POTASSIUM 3.9 mmol/L (3.5-5.1)
[2021-08-20 15:55] LABS: ALBUMIN 2.4 g/dL (3.4-4.8); TOTAL BILIRUBIN 0.2 mg/dL (0.0-1.0)
[2021-08-20] MEDS ORDERED: PROMETHAZINE INJ.Non-Formulary 25 MG/ML AMP IM ONE (16:15)
--- NOTE | 2021-08-20 16:15 | NUR ---
ER Dr. Jacome at bedside examining patient.
--- NOTE | 2021-08-20 16:45 | NUR ---
Patient was BIB c/o flu-like symptoms. Patient is A&Ox4 sitting in bed.
[2021-08-20] MEDS ORDERED: ONDANSETRON HCL 4 MG/2 ML VIAL IVP ONE (17:00)
--- NOTE | 2021-08-20 17:30 | NUR ---
Urine specimen collected and sent to lab.
[2021-08-20] MEDS ORDERED: ACETAMINOPHEN 500 MG TABLET PO ONE (17:45)
[2021-08-20 18:45] LABS: BILIRUBIN,URINE 1+ (NEGATIVE); CLARITY/URINE SL CLOUDY (CLEAR); GLUCOSE,URINE NEGATIVE (NEGATIVE); KETONES,URINE 2+ (NEGATIVE); LEUKOCYTE ESTERASE ,URINE NEGATIVE (NEGATIVE); NITRITE, URINE NEGATIVE (NEGATIVE); PROTEIN URINE 2+ (NEGATIVE)
--- NOTE | 2021-08-20 19:18 | NUR ---
Report given to KRISTAN Reyes. Patient resting in bed.
[2021-08-20 19:24] LABS: BLOOD, URINE TRACE (NEGATIVE); COLOR,URINE AMBER (YELLOW)
[2021-08-20] MEDS ORDERED: ONDA-8 TL ×2 (19:45)
[2021-08-20] MEDS ORDERED: OSEL75CA PO ×2 (19:45)
[2021-08-20 20:00] LABS: WBC,URINE 20-50 /HPF (0-3)
[2021-08-20 20:01] LABS: BACTERIA,URINE MANY /HPF (None Seen); MUCUS,URINE 3+ /LPF (None Seen)
--- NOTE | 2021-08-20 20:03 | NUR ---
Patient does not wish to proceed with medical care recommended by DR BOGGS. Patient given information related to possible complications, up to and including , which could occur as a result of leaving hospital at this time. Patient verbalizes understanding of risks involved leaving against medical advice. Patient has signed AMA form. [facility] [employer].
[2021-08-20 20:05] VITALS: BP_SYST 121
[2021-08-21] MEDS ORDERED: METOPROLOL TARTRATE 25 MG TABLET ONE (06:42)
[2021-08-21] MEDS ORDERED: PANTOPRAZOLE SODIUM 40 MG TAB ONE (06:42)
== END 2021-08-20 20:05 | disposition left against medical advice (07) ==
LOC: SED 13:27
DX: E86.0 Dehydration (principal); R11.10 Vomiting, unspecified; J10.1 Influenza due to other identified influenza virus with other respiratory manifestations; Z20.822 Contact with and (suspected) exposure to COVID-19
CPT/HCPCS: 36415; 80053; 81000; 82009; 83605; 85025; 87086; 87426; 87804 ×2; 93005; 96361; 96374; 96375; 99284; G9035; J1200; J2405; J2550; J2765

== ENCOUNTER 2021-08-29 05:20 | Inpatient (IN) | payer BC, OTHER ==
[~2021-08-29] VITALS: Ht 157.5 cm; Wt 92.1 kg
[~2021-08-29 05:20] MED LIST: ONDA-8 TL; OSEL75CA PO
[2021-08-29] MEDS ORDERED: LR 1,000 ML IV SCH ×3 (05:30→09:00)
[2021-08-29] MEDS ORDERED: CEFAZOLIN 2 GM IVPB PREMIX 50 ML IV ONE (05:30)
[2021-08-29 05:40] VITALS: BP_SYST 108
[2021-08-29 06:56] LABS: BASOPHILS % (AUTO) 0.4 % (0.0-2.0); EOSINOPHILS % (AUTO) 0.5 % (0.0-4.0); HEMATOCRIT 32.4 % (36-48); HEMOGLOBIN 10.6 g/dL (12.0-16.0); LYMPHOCYTES # (AUTO) 1.9 K/uL (1.0-5.5); LYMPHOCYTES % (AUTO) 32.6 % (20.5-51.5); MEAN CORPUSCULAR HEMOGLOBIN 24 pg (27-31); MEAN CORPUSCULAR HGB CONC 33 % (32-36); MEAN CORPUSCULAR VOLUME 73 fL (79.0-98.0); MONOCYTES # (AUTO) 0.4 K/uL (0.0-1.0); MONOCYTES % (AUTO) 7.1 % (1.7-9.3); NEUTROPHILS # (AUTO) 3.5 K/uL (1.8-7.7); NEUTROPHILS % (AUTO) 59.4 % (40.0-70.0); PLATELET COUNT (AUTO) 268 K/uL (130-430); RED BLOOD CELL COUNT(AUTO) 4.45 MIL/uL (4.2-6.2); RED CELL DISTRIBUTION WIDTH 15.5 % (9.0-15.0); WHITE BLOOD COUNT (AUTO) 5.9 K/uL (4.8-10.8)
[2021-08-29 07:13] LABS: BILIRUBIN,URINE NEGATIVE (NEGATIVE); BLOOD, URINE NEGATIVE (NEGATIVE); CLARITY/URINE CLOUDY (CLEAR); COLOR,URINE YELLOW (YELLOW); GLUCOSE,URINE NEGATIVE (NEGATIVE); KETONES,URINE NEGATIVE (NEGATIVE); LEUKOCYTE ESTERASE ,URINE 1+ (NEGATIVE); NITRITE, URINE NEGATIVE (NEGATIVE); PROTEIN URINE TRACE (NEGATIVE); UROBILINOGEN,URINE 0.2 (0.2-1.0)
[2021-08-29] MEDS ORDERED: MORPHINE SULFATE 10MG/10ML PF AMP ONE (07:35)
[2021-08-29] MEDS ORDERED: LR 1,000 ML IV.SOLN IV ONE (07:35)
[2021-08-29] MEDS ORDERED: OXYTOCIN 10 UNIT/ML VIAL ONE (07:35)
[2021-08-29] MEDS ORDERED: NS IRRIG SOLN 1000 ML IR ONE (07:35)
[2021-08-29] MEDS ORDERED: BUPIVACAINE /PF 0.75% 10 ML VIAL INJ ONE (07:35)
[2021-08-29] MEDS ORDERED: ONDANSETRON HCL 4 MG/2 ML VIAL ONE (07:35)
[2021-08-29 08:23] LABS: BACTERIA,URINE MODERATE /HPF (None Seen); MUCUS,URINE 1+ /LPF (None Seen); RBC,URINE 0-3 /HPF (0-3)
[2021-08-29] MEDS ORDERED: MORPHINE SULFATE 10MG/10ML PF AMP SP SCH (08:30)
[2021-08-29] MEDS ORDERED: METOCLOPRAMIDE HCL 10 MG/2 ML VIAL IVP PRN (08:30)
[2021-08-29] MEDS ORDERED: DIPHENHYDRAMINE INJ 50 MG/ML VIAL IM PRN (08:30)
[2021-08-29] MEDS ORDERED: KETOROLAC TROMETHAMINE 30 MG VIAL IVP PRN (08:30)
[2021-08-29] MEDS ORDERED: KETOROLAC TROMETHAMINE 60 MG/2 ML VIAL IM PRN (08:30)
[2021-08-29] MEDS ORDERED: HYDROmorphone 1 MG/ML INJ. CARTRIDGE IVP PRN (08:30)
[2021-08-29] MEDS ORDERED: MEPERIDINE HCL/PF 25 MG/ML DISP.SYRIN IVP PRN (08:30)
[2021-08-29] MEDS ORDERED: ONDANSETRON HCL 4 MG/2 ML VIAL IVP PRN ×2 (08:30)
[2021-08-29 08:51] VITALS: BP_SYST 99
[2021-08-29] MEDS ORDERED: HYDROcodone/ACETAMIN 5-325 MG TAB (NORCO/ VICODIN) PO PRN (09:00)
[2021-08-29] MEDS: DOCUSATE SODIUM 100 MG CAPSULE PO SCH ×2 (09:00→21:24)
[2021-08-29] MEDS ORDERED: MEASLES,MUMPS&RUBELLA VACC/PF 12500 UNIT/0.5 ML VIAL SUBQ PRN (09:00)
[2021-08-29] MEDS ORDERED: RHO(D) IMMUNE GLOBULIN/MALTOSE 1500 UNITS/1.3 ML (WINHRO) IM PRN (09:00)
[2021-08-29] MEDS ORDERED: NALOXONE HCL 0.4 MG/ML AMP (NARCAN) IVP PRN (09:00)
[2021-08-29] MEDS ORDERED: BISACODYL 10 MG/SUPPOSITORY RC PRN (09:00)
[2021-08-29] MEDS ORDERED: DIPH-TET-PERTUS Vaccine 0.5 ML VIAL (ADACEL) I.M. PRN (09:00)
[2021-08-29] MEDS ORDERED: OXYTOCIN/0.9 % SODIUM CHLORIDE 1,000 ML IV SCH (09:00)
[2021-08-29] MEDS ORDERED: LANOLIN 7 GM OINT. TP PRN (09:00)
[2021-08-29] MEDS ORDERED: OXYCODONE/ACETAMINOPHEN 5-325 TABLET PO PRN (09:00)
[2021-08-29] MEDS ORDERED: ANUSOL 1 EA SUPP.RECT (PREPARATION H) RC PRN (09:00)
[2021-08-29] MEDS ORDERED: TEMAZEPAM 15 MG CAPSULE PO PRN (09:00)
[2021-08-29] MEDS: CEFAZOLIN 1 GM IVPB PREMIX 50 ML IV SCH ×3 (12:12→23:50)
[2021-08-29] MEDS ORDERED: SENNOSIDES/DOCUSATE SODIUM 1 TAB TABLET(SENOKOT-S) PO SCH (21:00)
[2021-08-29] MEDS: KETOROLAC TROMETHAMINE 30 MG VIAL IVP SCH (23:51)
[2021-08-30] MEDS: KETOROLAC TROMETHAMINE 30 MG VIAL IVP SCH ×2 (06:11→12:08)
[2021-08-30 07:00] LABS: BASOPHILS % (AUTO) 0.3 % (0.0-2.0); EOSINOPHILS # (AUTO) 0.1 K/uL (0.0-0.4); EOSINOPHILS % (AUTO) 1.6 % (0.0-4.0); HEMATOCRIT 29.9 % (36-48); HEMOGLOBIN 9.7 g/dL (12.0-16.0); LYMPHOCYTES # (AUTO) 1.4 K/uL (1.0-5.5); LYMPHOCYTES % (AUTO) 16.9 % (20.5-51.5); MEAN CORPUSCULAR HEMOGLOBIN 24 pg (27-31); MEAN CORPUSCULAR HGB CONC 32 % (32-36); MEAN CORPUSCULAR VOLUME 73 fL (79.0-98.0); MONOCYTES # (AUTO) 0.6 K/uL (0.0-1.0); MONOCYTES % (AUTO) 7.2 % (1.7-9.3); PLATELET COUNT (AUTO) 240 K/uL (130-430); RED BLOOD CELL COUNT(AUTO) 4.08 MIL/uL (4.2-6.2); RED CELL DISTRIBUTION WIDTH 15.6 % (9.0-15.0); WHITE BLOOD COUNT (AUTO) 8.1 K/uL (4.8-10.8)
[2021-08-30] MEDS: SIMETHICONE 80 MG TAB.CHEW PO PRN ×2 (07:47→21:31)
[2021-08-30] MEDS: DOCUSATE SODIUM 100 MG CAPSULE PO SCH ×2 (09:04→21:05)
[2021-08-30] MEDS: OXYCODONE/ACETAMINOPHEN *10*mg/325 mg TABLET PO PRN (16:50)
[2021-08-30] MEDS: IBUPROFEN 600 MG TABLET PO SCH (18:23)
[2021-08-31] MEDS: IBUPROFEN 600 MG TABLET PO SCH ×3 (00:08→12:25)
[2021-08-31] MEDS: OXYCODONE/ACETAMINOPHEN *10*mg/325 mg TABLET PO PRN ×2 (09:33→13:32)
[2021-08-31] MEDS: DOCUSATE SODIUM 100 MG CAPSULE PO SCH (10:02)
[2021-08-31] MEDS: SIMETHICONE 80 MG TAB.CHEW PO PRN (10:02)
[2021-08-31] MEDS ORDERED: PERC10 PO (14:13)
[2021-08-31] MEDS ORDERED: IBUP-1969 PO (14:13)
== END 2021-08-31 14:30 | disposition home or self-care (01) | DRG 788 ==
LOC: SPU 05:20
PROVIDERS: ADMIT Specialist; ATTEND Specialist
PROC: 10D00Z1 Extraction of Products of Conception, Low, Open Approach (ICD-10-PCS; principal; 2021-08-29 07:41)
PROC: 3E0234Z Introduction of Serum, Toxoid and Vaccine into Muscle, Percutaneous Approach (ICD-10-PCS; 2021-08-30)
DX: O34.211 Maternal care for low transverse scar from previous cesarean delivery (principal); Z20.822 Contact with and (suspected) exposure to COVID-19; Z3A.38 38 weeks gestation of pregnancy; Z37.0 Single live birth; Z23 Encounter for immunization
CPT/HCPCS: 36415; 81000; 85025; 86592; 86780; 86870; 86886; 86900; 86901; 87635-QW; J0690; J1885; J2274; J2405; J2590; J2790; J3490; J7120; U0003

== ENCOUNTER 2023-05-22 00:05 | Emergency (ER) | payer BC, OTHER ==
[~2023-05-22] VITALS: Ht 157.5 cm; Wt 86.2 kg
[~2023-05-22 00:05] MED LIST changes: +IBUP-1969 PO; -ONDA-8 TL; -OSEL75CA PO; +PERC10 PO
[2023-05-22 00:08] VITALS: BP_SYST 104; PULSE 84; RESP 16; TEMP 97.8; O2SAT 98
[2023-05-22] MEDS: HYDROcodone/ACETAMIN 5-325 MG TAB (NORCO/ VICODIN) PO ONE (00:41)
[2023-05-22] MEDS ORDERED: HYDR-3917 PO (01:08)
[2023-05-22 01:30] VITALS: BP_SYST 104; PULSE 84; RESP 16; TEMP 97.8; O2SAT 98
== END 2023-05-22 01:30 | disposition home or self-care (01) ==
LOC: SED 00:05
DX: S82.392A Other fracture of lower end of left tibia, initial encounter for closed fracture (principal); Z79.899 Other long term (current) drug therapy; W21.220A Struck by ice hockey puck, initial encounter; Y93.22 Activity, ice hockey; Y92.89 Other specified places as the place of occurrence of the external cause; Y99.8 Other external cause status
CPT/HCPCS: 99284